=== PATIENT | male | born 1975 | race Caucasian/White ===

== ENCOUNTER 2016-12-26 12:45 | Emergency (ER) | payer OTHER ==
[~2016-12-26 12:45] MED LIST: GABA300C5 PO; HYDR-3583 PO
[2016-12-26 12:50] VITALS: BP 149/87; PULSE 84; RESP 17; TEMP 98.3; O2SAT 99
--- NOTE | 2016-12-26 13:03 | PD ---
Physical Exam Date Seen by Provider: Dec 26, 2016 Time Seen by Provider: 12:57 Data Data Last Documented VS Vital Signs Date Time Temp Pulse Resp B/P Pulse Ox O2 Delivery O2 Flow Rate FiO2 12/26/16 12:50 98.3 84 17 149/87 99 MDM Supervised Visit with HADLEY: No Narrative Course 41 YO M with complaint of right heel pain. Patient was seen at [facility], splint placed. Had script for 10 Oxycodone, now out. States that he lost his balance on crutches after having his wrist injected today, stepped down on the injured foot. Has referral from Dr. Krueger to podiatry. Vitals reviewed. Patient seen in triage, awaiting bed placement. Su Barnett Dec 26, 2016 13:03
[2016-12-26] MEDS ORDERED: oxyCODONE/ACETAMINOPHEN 5 MG/325 MG TAB PO ONE (13:45)
--- NOTE | 2016-12-26 13:45 | PD ---
HPI Chief Complaint: Pain: Acute or Chronic Time Seen by Provider: 13:18 Travel History International Travel<30 days: No Contact w/Intl Traveler<30days: No Traveled to known affect area: No History of Present Illness HPI This is a 41-year-old male who presents to the emergency department with pain in his right foot. The patient reports that one week ago when changing a light bulb he fell off a chair and landed on his right heel. [facility] diagnosed him with a calcaneus fracture and referred him to podiatry through his [employer]. He's not yet gotten into the freelance designer. He received 10 pills of Percocet at that time which she completed on . He is also receiving injections from Dr. Krueger for a thumb dislocation and ligament injury. He slipped on his crutches and landed hard on his right heel. He thinks he crushed his foot more. He reports moderate severity pain in the right heel, constant, severe with no other injuries. PFSH Past Medical History Asthma: No Autoimmune Disease: No Anxiety: No Depression: No Cancer: No Cardiovascular Problems: No Chemotherapy: No COPD: No Diminished Hearing: No Endocrine: No Glaucoma: Yes Genitourinary: No Musculoskeletal: No Neurologic: No Psychiatric: No Respiratory: No Radiation Therapy: No Seizures: Yes Sickle Cell Disease: No Sleep Apnea: No Social History Alcohol Use: No Tobacco Use: Yes (OCC. CIGAR) Substance Use: No Allergies-Medications (Allergen,Severity, Reaction): Coded Allergies: Biaxin (Verified Allergy, Severe, Swelling HIVES, 12/25/16) Decadron (Verified Allergy, Severe, SWELLING, 12/25/16) Toradol (Verified Allergy, Unknown, 12/26/16) Tramadol (Verified Allergy, Unknown, 12/26/16) Reported Meds & Prescriptions Reported Meds & Active Scripts Active Reported Hydrocodone-Acetaminophen 10-325 mg Tab 1 Tab PO Q4H PRN Gabapentin 300 Mg Cap 300 Mg PO TID Review of Systems Except as stated in HPI: all other systems reviewed are Neg Physical Exam Narrative GENERAL:Well appearing, no acute distress SKIN: Focused skin assessment warm and dry. HEAD: Atraumatic. Normocephalic. EYES: Pupils equal and round. No injection or drainage. ENT: Moist mucous membranes NECK: Trachea midline. CARDIOVASCULAR: Regular rate and rhythm. No murmur appreciated. 2+ right DP pulse RESPIRATORY: Clear to auscultation. Breath sounds equal bilaterally. GASTROINTESTINAL: Abdomen soft, non-tender, nondistended. MUSCULOSKELETAL: Tender to palpation over the right calcaneus. No swelling. No ankle joint effusion. N EUROLOGICAL: Awake and alert. No obvious cranial nerve deficits. All extremities. PSYCHIATRIC: Appropriate mood and affect; insight and judgment normal. Data Data Last Documented VS Vital Signs Date Time Temp Pulse Resp B/P Pulse Ox O2 Delivery O2 Flow Rate FiO2 12/26/16 12:50 98.3 84 17 149/87 99 Orders Foot, Complete ([id number]) (12/26/16 ) Oxycodone-Acetamin 5-325 Mg (Percocet (12/26/16 13:45) Splint Or Brace Apply/Monitor (12/26/16 14:39) MDM Medical Decision Making Medical Screen Exam Complete: Yes Emergency Medical Condition: Yes Interpretation(s) Afebrile, no tachycardia, hypertensive Last 24 hours Impressions Foot X-Ray 12/26/16 0000 Signed Impressions: Service Date/Time: Monday, December 26, 2016 13:47 - CONCLUSION: Moderate- sized heel spur with potentially a nondisplaced fracture through its base. Otherwise intact right foot. Anthony Carpenter MD Differential Diagnosis Calcaneal fracture, heel sprain, contusion Narrative Course This is a 41-year-old male who presents to the emergency department having fallen on his right foot off of crutches. He is a known calcaneus fracture there. I was performed demonstrating a small possibly fractured heel spur. I don't think this is surgical. He was placed in a splint. I had a long conversation with the patient regarding the dependence potential of opiates. He spilled a large number of opiate prescriptions this year and he has stated allergies to Toradol and tramadol which concern me for some drug seeking behavior. I agreed to prescribe him a short course of Lortab given his recent injury in addition to an anti-inflammatory. He will follow-up with his freelance designer as an outpatient. Diagnosis Primary Impression: Calcaneus fracture, right Qualified Code: S92.001A - Closed nondisplaced fracture of right calcaneus, unspecified portion of calcaneus, initial encounter Patient Instructions: General Instructions Med/Other Pt SpecificInfo: Prescription(s) given Scripts Naproxen 500 Mg [id number] Mg PO BID PRN (PAIN SCALE 4 TO 10) #20 TAB Ref 0 Prov:Fabiana Gastelum MD 12/26/16 Hydrocodone-Acetaminophen (Lortab)5-325 Mg Tab1 Tab PO Q6H PRN (PAIN) #8 TAB Ref 0 Prov:Fabiana Gastelum MD 12/26/16 Disposition: 01 DISCHARGE HOME Condition: Stable Fabiana Gastelum MD Dec 26, 2016 13:45
--- NOTE | 2016-12-26 14:19 | RADRPT ---
EXAM DATE/TIME: 12/26/2016 13:47 [facility] COMPARISON: ANKLE RIGHT COMPLETE ([id number]), December 11, 2014, 19:52. INDICATIONS : Slammed down on right foot today. Pain accelerates to back of right leg. MEDICAL HISTORY : None. SURGICAL HISTORY : None. ENCOUNTER: Initial ACUITY: 1 day PAIN SCORE: 8/10 LOCATION: Right heel FINDINGS: Moderate-sized heel spur again noted, not new but potentially a nondisplaced fracture through its bas e. Otherwise, bones of the right foot are intact and normally aligned. Variant anatomy bipartite tibi al sesamoid noted. CONCLUSION: Moderate-sized heel spur with potentially a nondisplaced fracture through its base. Otherwise intact right foot. Anthony Carpenter MD on December 26, 2016 at 14:16 Board Certified Radiologist. This report was verified electronically.
[2016-12-26] MEDS ORDERED: NAPR500T PO (14:42)
[2016-12-26] MEDS ORDERED: HYDR-3533 PO (14:42)
== END 2016-12-26 15:13 | disposition home or self-care (01) ==
LOC: NEPD 12:45
DX: S92.001A Unspecified fracture of right calcaneus, initial encounter for closed fracture (principal); W19.XXXA Unspecified fall, initial encounter; Y99.0 Civilian activity done for income or pay
CPT/HCPCS: 29515; 73630

== ENCOUNTER 2017-10-30 21:22 | Emergency (ER) | payer MEDICAID, OTHER ==
[~2017-10-30] VITALS: Ht 177.8 cm; Wt 84.0 kg
[~2017-10-30 21:22] MED LIST changes: -GABA300C5 PO; -HYDR-3583 PO; +IBUP1TAB7 PO; +MEDR4PAK PO
[2017-10-30 21:29] VITALS: PULSE 102; RESP 20; TEMP 98.6; O2SAT 98
--- NOTE | 2017-10-30 21:46 | PD ---
HPI Chief Complaint: Pain: Acute or Chronic Time Seen by Provider: 21:37 Travel History International Travel<30 days: No Contact w/Intl Traveler<30days: No Traveled to known affect area: No History of Present Illness HPI 42yo M with PMH of PTSD, anxiety, cocaine abuse here with c/o anxiety attack. Said he has been having left sided chest pain as well as left upper abdominal pain for an hour. Said he cant breathe. Pt is crying and very emotional. Denies any fever, n/v, focal weakness. Said he smoke crack cocaine last 1 month ago. Denies any IVDA. PFSH Past Medical History Asthma: No Autoimmune Disease: No Anxiety: No Depression: No Cancer: No Cardiovascular Problems: No Chemotherapy: No COPD: No Diminished Hearing: No Endocrine: No Glaucoma: Yes Genitourinary: No Musculoskeletal: No Neurologic: No Psychiatric: No Respiratory: No Radiation Therapy: No Seizures: Yes Sickle Cell Disease: No Sleep Apnea: No Past Surgical History Other Surgery: No Social History Alcohol Use: No Tobacco Use: Yes (QUIT 2 YEARS ) Substance Use: No Allergies-Medications (Allergen,Severity, Reaction): Coded Allergies: clarithromycin (Verified Allergy, Severe, Swelling HIVES, 10/30/17) dexamethasone (Verified Allergy, Severe, SWELLING, 10/30/17) ketorolac (Verified Allergy, Unknown, 10/30/17) tramadol (Verified Allergy, Unknown, 10/30/17) Reported Meds & Prescriptions Reported Meds & Active Scripts Active Reported Stirum (Hydrocodone-Acetaminophen) 5 Mg-325 Mg Tab 1 Tab PO Q6H PRN Review of Systems Except as stated in HPI: all other systems reviewed are Neg Physical Exam Narrative GENERAL: 42yo M crying. SKIN: Focused skin assessment warm/dry. HEAD: Atraumatic. Normocephalic. EYES: Pupils equal and round. No scleral icterus. No injection or drainage. ENT: No nasal bleeding or discharge. Mucous membranes pink and moist. NECK: Trachea midline. No JVD. CARDIOVASCULAR: Regular rate and rhythm. No murmur appreciated. RESPIRATORY: No accessory muscle use. Clear to auscultation. Breath sounds equal bilaterally. GASTROINTESTINAL: Abdomen soft, +TTP LUQ. No rebound tenderness or guarding. MUSCULOSKELETAL: No obvious deformities. No clubbing. No cyanosis. No edema. NEUROLOGICAL: Awake and alert. No obvious cranial nerve deficits. Motor grossly within normal limits in all extremities. Normal speech. PSYCHIATRIC: Anxious, crying. Data Data Last Documented VS Vital Signs Date Time Temp Pulse Resp B/P (MAP) Pulse Ox O2 Delivery O2 Flow Rate FiO2 10/30/17 22:00 96 20 112/78 (89) 98 Room Air 10/30/17 21:29 98.6 Orders Orders Basic Metabolic Panel (Bmp) (10/30/17 21:39) Complete Blood Count With Diff (10/30/17 21:39) Troponin I (10/30/17 21:39) Lipase (10/30/17 21:39) Chest, Single Ap (10/30/17 21:39) Ct Abd/Pel W Iv Contrast(Rout) (10/30/17 ) Lorazepam Inj (Ativan Inj) (10/30/17 22:00) Iohexol 350 Inj (Omnipaque 350 Inj) (10/30/17 22:36) Labs Laboratory Tests Test 10/30/17 21:40 White Blood Count 9.6 TH/MM3 Red Blood Count 4.83 MIL/MM3 Hemoglobin 14.4 GM/DL Hematocrit 40.7 % Mean Corpuscular Volume 84.3 FL Mean Corpuscular Hemoglobin 29.9 PG Mean Corpuscular Hemoglobin Concent 35.5 % Red Cell Distribution Width 13.8 % Platelet Count 333 TH/MM3 Mean Platelet Volume 8.0 FL Neutrophils (%) (Auto) 52.1 % Lymphocytes (%) (Auto) 33.2 % Monocytes (%) (Auto) 12.4 % Eosinophils (%) (Auto) 1.8 % Basophils (%) (Auto) 0.5 % Neutrophils # (Auto) 5.0 TH/MM3 Lymphocytes # (Auto) 3.2 TH/MM3 Monocytes # (Auto) 1.2 TH/MM3 Eosinophils # (Auto) 0.2 TH/MM3 Basophils # (Auto) 0.0 TH/MM3 CBC Comment DIFF FINAL Differential Comment Blood Urea Nitrogen 15 MG/DL Creatinine 1.33 MG/DL Random Glucose 113 MG/DL Calcium Level 8.9 MG/DL Sodium Level 138 MEQ/L Potassium Level 3.4 MEQ/L Chloride Level 101 MEQ/L Carbon Dioxide Level 20.6 MEQ/L Anion Gap 16 MEQ/L Estimat Glomerular Filtration Rate 60 ML/MIN Troponin I LESS THAN 0.02 NG/ML Lipase 173 U/L [facility] Medical Decision Making Medical Screen Exam Complete: Yes Emergency Medical Condition: Yes Interpretation(s) EKG: NSR 98bpm. Normal axis. No significant ST elevation or depression. Differential Diagnosis Anxiety vs. ACS vs. costochondritis vs. gastritis vs. peptic ulcer disease Narrative Course 42yo M here with complaint of panic attack. Labs reviewed, no leukocytosis. H/ H normal. Troponin negative. CO2 is low because pt is anxious and hyperventilating. Lipase normal. CXR negative. CT a/p showed mild gastric distension. Small hiatal hernia. No acute findings. Pt given ativan and reevaluated at bedside. All symptoms resolved and pt feels much better. Wants to go home. Girlfriend is with him. Return precautions given. Diagnosis Primary Impression: Anxiety Patient Instructions: General Instructions Departure Forms: Tests/Procedures Additional Instructions: Please follow up with your primary care physician in 2-3 days. Return to the ED if symptoms worsen. Med/Other Pt SpecificInfo: No Change to Meds Disposition: 01 DISCHARGE HOME Condition: Stable Ana Matutemaykel SERNA Oct 30, 2017 21:46
[2017-10-30 22:00] VITALS: BP 112/78; PULSE 96; RESP 20; O2SAT 98
[2017-10-30] MEDS ORDERED: LORazepam 2 MG/ML VIAL IV PUSH ONE (22:00)
[2017-10-30] MEDS ORDERED: NORC5TAB PO (22:06)
--- NOTE | 2017-10-30 22:07 | RADRPT ---
EXAM DATE: 10/30/2017 10:00 PM EDT AGE/SEX: 42 years / Male INDICATIONS: Chest pain. CLINICAL DATA: This is the patient's initial encounter. Patient reports that signs and symptoms have been present for 1 day and indicates a pain score of 10/10. MEDICAL/SURGICAL HISTORY: None. None. COMPARISON: No prior exams available for comparison. FINDINGS: A single AP view of the chest demonstrates the lungs to be symmetrically aerated without evidence of mass, infiltrate or effusion. The cardiomediastinal contours are unremarkable. Osseous structures a re intact. CONCLUSION: No active disease. Electronically signed by: Donald Sahni MD 10/30/2017 10:05 PM EDT
[2017-10-30] MEDS ORDERED: IOHEXOL 350 MG/ML 10 ML VIAL (for RAD DIAG) IVCONTRAST ONE (22:36)
[2017-10-30 22:40] LABS: BASOPHIL % 0.5 % (0.0-2.0); EOSINOPHIL # 0.2 TH/MM3 (0-0.4); EOSINOPHIL % 1.8 % (0.0-4.0); HEMATOCRIT 40.7 % (39.0-51.0); HEMOGLOBIN 14.4 GM/DL (13.0-17.0); LYMPH % 33.2 % (9.0-44.0); LYMPHOCYTE # 3.2 TH/MM3 (1.0-4.8); MEAN CELL VOLUME 84.3 FL (80.0-100.0); MEAN CORPUSCULAR HEMOGLOBIN 29.9 PG (27.0-34.0); MEAN CORPUSCULAR HGB CONC 35.5 % (32.0-36.0); MONO % 12.4 % (0.0-8.0); MONOCYTE # 1.2 TH/MM3 (0-0.9); NEUT % 52.1 % (16.0-70.0); PLATELET COUNT 333 TH/MM3 (150-450); RED BLOOD COUNT 4.83 MIL/MM3 (4.50-5.90); RED CELL DISTRIBUTION WIDTH 13.8 % (11.6-17.2); WHITE BLOOD COUNT 9.6 TH/MM3 (4.0-11.0)
--- NOTE | 2017-10-30 22:51 | RADRPT ---
EXAM DATE: 10/30/2017 10:43 PM EDT AGE/SEX: 42 years / Male INDICATIONS: Abdomen pain. CLINICAL DATA: This is the patient's initial encounter. Patient reports that signs and symptoms have been present for 1 day and indicates a pain score of 0/10. MEDICAL/SURGICAL HISTORY: . Substance abuse . ORAL CONTRAST: No oral contrast ingested. RADIATION DOSE: 13.72 CTDI (mGy) COMPARISON: No prior exams available for comparison. TECHNIQUE: Multiple contiguous axial images were obtained through the abdomen and pelvis following b olus infusion of 95 ml Omnipaque 350 (iohexol) nonionic water-soluble contrast as a single exam dos e. No oral contrast ingested. Using automated exposure control and adjustment of the mA and/or kV ac cording to patient size, the radiation dose was kept as low as reasonably achievable to obtain optima l diagnostic quality images. FINDINGS: Lung bases demonstrate some dependent atelectasis. No acute findings in the liver, spleen, adrenals, kidneys or pancreas. Small hiatal hernia. No gallstones or biliary ductal dilatation. Stomach is mild ly distended. There is no free fluid or free air. No bowel obstruction. No adenopathy. There is previous fixation o f the proximal left femur. CONCLUSION: 1. Mild gastric distention. Small hiatal hernia. Otherwise no acute findings within the abdomen and pelvis. Previous fixation proximal left femur. Electronically signed by: Donald Sahni MD 10/30/2017 10:49 PM EDT
[2017-10-30 22:57] LABS: BICARBONATE 20.6 MEQ/L (21.0-32.0); BLOOD UREA NITROGEN 15 MG/DL (7-18); CALCIUM 8.9 MG/DL (8.5-10.1); CHLORIDE 101 MEQ/L (98-107); CREATININE 1.33 MG/DL (0.60-1.30); GLOMERULAR FILTRATION RATE 60 ML/MIN (>89); GLUCOSE,RANDOM 113 MG/DL (74-106); SODIUM (NA) 138 MEQ/L (136-145)
[2017-10-30 23:02] LABS: TROPONIN I LESS THAN 0.02 NG/ML (0.02-0.05)
--- NOTE | 2017-10-31 14:36 | EKG ---
Date Performed: 10/30/2017 Time Performed: 21:36:07 PTAGE: 42 years EKG: Sinus rhythm NONSPECIFIC T-WAVE ABNORMALITY BORDERLINE ECG PREVIOUS TRACING : 10/24/2004 16.23 Since the previous tracing, no significant change noted DOCTOR: Rk Villasenor Interpretating Date/Time 10/31/2017 14:34:16
== END 2017-10-31 02:05 | disposition home or self-care (01) ==
LOC: NEPC 21:22
DX: F41.9 Anxiety disorder, unspecified (principal); R07.89 Other chest pain; R10.12 Left upper quadrant pain; R94.31 Abnormal electrocardiogram [ECG] [EKG]; Z86.69 Personal history of other diseases of the nervous system and sense organs; Z86.59 Personal history of other mental and behavioral disorders
CPT/HCPCS: 71045; 74177; 80048; 83690; 84484; 85025; 93005; 96374; 99285; J2060; Q9967